=== PATIENT | female | born 1935 | race Caucasian/White ===

== ENCOUNTER 2019-01-19 06:01 | Day surgery (SDC) | payer OTHER ==
[2019-01-18 12:50] LABS: BASOPHILS # (AUTO) 0.1 X10'3 (0-0.2); BASOPHILS % (AUTO) 1.1 % (0-1); EOSINOPHILS # (AUTO) 0.1 X10'3 (0-0.9); EOSINOPHILS % (AUTO) 1.8 % (0-6); HEMOGLOBIN 16.2 g/dl (12.0-16.0); LYMPHOCYTES # (AUTO) 0.7 X10'3 (1.1-4.8); LYMPHOCYTES % (AUTO) 13.1 % (21-51); MEAN CORPUSCULAR HEMOGLOBIN 28.8 PG (27.0-31.0); MEAN CORPUSCULAR HGB CONC 33.2 g/dL (33.0-36.5); MEAN CORPUSCULAR VOLUME 86.8 FL (78-98); MEAN PLATELET VOLUME 8.9 FL (7.4-10.4); MONOCYTES # (AUTO) 0.6 X10'3 (0-0.9); MONOCYTES % (AUTO) 10.2 % (2-12); NEUTROPHILS # (AUTO) 4.2 X10'3 (1.8-7.7); NEUTROPHILS % (AUTO) 73.8 % (42-75); PLATELET COUNT 192 X10'3 (140-440); RED BLOOD COUNT 5.64 X10'6 (4.20-5.60); WHITE BLOOD COUNT 5.7 X10'3 (4.5-11.0)
[2019-01-18 12:58] LABS: ALBUMIN 3.6 G/DL (3.4-5.0); ANION GAP 8 (8-16); BLOOD UREA NITROGEN 25 MG/DL (7-18); BUN/CREATININE RATIO 31.3 (6.6-38.0); CALCIUM 9.7 MG/DL (8.5-10.1); CHLORIDE 106 MMOL/L (99-107); GLUCOSE 82 MG/DL (70-104); SODIUM 142 MMOL/L (135-145); TOTAL CARBON DIOXIDE 28.4 MMOL/L (24-32); eGFR 69 ML/MIN
[2019-01-18 13:02] LABS: PARTIAL THROMBOPLASTIN TIME 28 SECONDS (22-32); PROTHROMBIN TIME 10.6 SECONDS (9.0-12.0)
[~2019-01-19] VITALS: Ht 147.3 cm; Wt 68.6 kg
[2019-01-19] VITALS (14 sets, daily range): BP systolic 116–139; BP diastolic 56–83
[~2019-01-19 06:01] MED LIST: AMLO2.5T2 PO; ASPI81TA46 PO; ATOR10TA70 PO; ESTR0.5T PO; MAGN250T11 PO; MULT-342 PO; OSC500T PO; VALS1TAB75 PO
[2019-01-19] MEDS ORDERED: normal saline 1,000 ML IV SCH (06:15)
[2019-01-19] MEDS ORDERED: LIDOcaine/PRILOcaine 5gm cream TP ONE (06:15)
[2019-01-19] MEDS ORDERED: LORazepam 0.5 MG tablet PO PRN (06:15)
[2019-01-19] MEDS ORDERED: diphenhydrAMINE 25mg capsule PO PRN (06:15)
[2019-01-19] MEDS ORDERED: CHOL10002 PO (06:22)
[2019-01-19] MEDS ORDERED: fentaNYL/PF 50MCG/1 ML 2ML syringe ONE (07:46)
[2019-01-19] MEDS ORDERED: midazolam 2 mg/2 ml injection ONE (07:46)
[2019-01-19] MEDS ORDERED: LIDOcaine 1% (10mg/ml)w/preservative injection 20ml MDV ONE (07:46)
[2019-01-19] MEDS ORDERED: nitroGLYCERIN-Tridil 50MG/D5W 250 ML IV ONE (07:46)
[2019-01-19] MEDS ORDERED: verapamil 2.5 mg/ml inj IV ONE (07:46)
[2019-01-19] MEDS ORDERED: iohexol 350MG/ML 100ml bottle IV ONE ×2 (07:47→08:46)
[2019-01-19] MEDS ORDERED: iohexol 350 MG/ML 50ML vial IV ONE (07:47)
[2019-01-19] MEDS ORDERED: heparin 1,000unit/ml 10ml vial 10 ML ONE ×2 (07:47→09:16)
[2019-01-19] MEDS ORDERED: HYDROmorphone 1 mg/ml syringe ONE (08:45)
[2019-01-19] MEDS ORDERED: heparin 25,000 UNIT/250ml bag 250 ML IV ONE (09:16)
[2019-01-19 15:51] LABS: ISTAT HGB ART 16.3 g/dl (12.0-16.0); ISTAT Hct ART 48 %PCV (35-48); ISTAT O2 SATURATION ARTERIAL 93 % (95-98); ISTAT SOURCE ART
[2019-01-19 15:51] LABS: ISTAT Hct MIX 48 %PCV (35-48); ISTAT O2 SATURATION MIX VENOUS 66 % (60-80); ISTAT SOURCE MIX
== END 2019-01-19 15:55 | disposition home or self-care (01) ==
LOC: SSTAY O 06:01
PROVIDERS: ATTEND Internal Medicine Cardiovascular Disease
DX: I25.10 Atherosclerotic heart disease of native coronary artery without angina pectoris (principal); I35.0 Nonrheumatic aortic (valve) stenosis; I10 Essential (primary) hypertension; E78.5 Hyperlipidemia, unspecified
CPT/HCPCS: 36415; 80048; 82803; 85014; 85025; 85347; 85610; 85730; 93005; 93460; 93567; 99152; 99153; J1170; J1644; J2001; J2250; J3010; J7030; Q0163; Q9967; A4620; C1769; J3490

== ENCOUNTER 2019-02-16 09:56 | Day surgery (SDC) | payer OTHER ==
[2019-02-15 11:59] LABS: BASOPHILS % (AUTO) 0.9 % (0-1); EOSINOPHILS # (AUTO) 0.2 X10'3 (0-0.9); EOSINOPHILS % (AUTO) 2.9 % (0-6); HEMATOCRIT 48.6 % (35.0-45.0); HEMOGLOBIN 16.2 g/dl (12.0-16.0); LYMPHOCYTES # (AUTO) 0.8 X10'3 (1.1-4.8); LYMPHOCYTES % (AUTO) 14.6 % (21-51); MEAN CORPUSCULAR HGB CONC 33.3 g/dL (33.0-36.5); MEAN PLATELET VOLUME 8.9 FL (7.4-10.4); MONOCYTES # (AUTO) 0.6 X10'3 (0-0.9); MONOCYTES % (AUTO) 9.8 % (2-12); NEUTROPHILS # (AUTO) 4.1 X10'3 (1.8-7.7); NEUTROPHILS % (AUTO) 71.8 % (42-75); PLATELET COUNT 169 X10'3 (140-440); RED BLOOD COUNT 5.58 X10'6 (4.20-5.60); RED CELL DISTRIBUTION WIDTH 15.2 % (11.5-14.5); WHITE BLOOD COUNT 5.7 X10'3 (4.5-11.0)
[2019-02-15 12:07] LABS: ALBUMIN 3.5 G/DL (3.4-5.0); ANION GAP 9 (8-16); BLOOD UREA NITROGEN 27 MG/DL (7-18); BUN/CREATININE RATIO 32.1 (6.6-38.0); CALCIUM 9.2 MG/DL (8.5-10.1); CHLORIDE 107 MMOL/L (99-107); CREATININE 0.84 MG/DL (0.40-0.90); GLUCOSE 97 MG/DL (70-104); PARTIAL THROMBOPLASTIN TIME 27 SECONDS (22-32); POTASSIUM 3.8 MMOL/L (3.5-5.1); SODIUM 143 MMOL/L (135-145); TOTAL CARBON DIOXIDE 26.7 MMOL/L (24-32); eGFR 65 ML/MIN
[2019-02-16] VITALS (12 sets, daily range): BP systolic 127–160; BP diastolic 35–92
[~2019-02-16] VITALS: Ht 147.3 cm; Wt 66.9 kg
[~2019-02-16 09:56] MED LIST changes: -ASPI81TA46 PO; +CHOL10002 PO
[2019-02-16] MEDS ORDERED: LORazepam 0.5 MG tablet PO PRN (10:30)
[2019-02-16] MEDS ORDERED: normal saline 1,000 ML IV SCH (10:30)
[2019-02-16] MEDS ORDERED: diphenhydrAMINE 25mg capsule PO PRN (10:30)
[2019-02-16] MEDS ORDERED: ATOR20TA PO (10:37)
[2019-02-16] MEDS ORDERED: LIDOcaine/PRILOcaine 5gm cream TP STA (11:31)
[2019-02-16] MEDS ORDERED: nitroGLYCERIN-Tridil 50MG/D5W 250 ML IV ONE (11:54)
[2019-02-16] MEDS ORDERED: iohexol 350 MG/ML 50ML vial IV ONE (11:54)
[2019-02-16] MEDS ORDERED: heparin 1,000unit/ml 10ml vial 10 ML ONE (11:54)
[2019-02-16] MEDS ORDERED: LIDOcaine 1% (10mg/ml)w/preservative injection 20ml MDV ONE (11:54)
[2019-02-16] MEDS ORDERED: iohexol 350MG/ML 100ml bottle IV ONE (11:55)
[2019-02-16] MEDS ORDERED: fentaNYL/PF 50MCG/1 ML 2ML syringe ONE (12:23)
[2019-02-16] MEDS ORDERED: midazolam 2 mg/2 ml injection ONE (12:23)
[2019-02-16] MEDS ORDERED: iohexol 350 MG/1 ML 200ml bottle ONE ×2 (12:44→13:54)
[2019-02-16] MEDS ORDERED: heparin 25,000 UNIT/250ml bag 250 ML IV ONE (12:55)
[2019-02-16] MEDS ORDERED: clopidogrel 300mg tablet ONE (14:22)
[2019-02-16] MEDS ORDERED: proCHLORperazine 10 MG/2 ml inj IV PRN (15:20)
[2019-02-16] MEDS ORDERED: acetaminophen 325mg tablet PO PRN (15:20)
[2019-02-16] MEDS ORDERED: magnesium hydroxide 30ml (MOM) UD suspension PO PRN (15:20)
[2019-02-16] MEDS ORDERED: HYDROcodone/acetaminophen 10/325mg tab PO PRN ×2 (15:20→15:30)
[2019-02-16] MEDS ORDERED: OXAZEpam 15mg capsule PO PRN (15:20)
[2019-02-16] MEDS ORDERED: cyclobenzaprine 10mg tablet PO PRN (15:20)
[2019-02-16] MEDS ORDERED: aspirin 81mg tab.chew PO ONE (15:25)
[2019-02-16] MEDS ORDERED: docusate sod 100mg capsule PO SCH (20:00)
[2019-02-17] MEDS ORDERED: clopidogrel 75mg tablet PO SCH (08:00)
[2019-02-17] MEDS ORDERED: aspirin 325mg tablet PO SCH (08:00)
== END 2019-02-16 20:15 | disposition home or self-care (01) ==
LOC: SSTAY O 09:56
PROVIDERS: ATTEND Internal Medicine Cardiovascular Disease
DX: I25.119 Atherosclerotic heart disease of native coronary artery with unspecified angina pectoris (principal); I10 Essential (primary) hypertension; E78.5 Hyperlipidemia, unspecified; I35.0 Nonrheumatic aortic (valve) stenosis; Z95.5 Presence of coronary angioplasty implant and graft
CPT/HCPCS: 36415; 80048; 85025; 85347; 85610; 85730; 92920; 93005; 93454; 99152; 99153; A6257; C1874; C9600; J1644; J2001; J2250; J3010; J7030; Q9967; 92921; A4620; C1725; C1760; C1769; C1894; J3490

== ENCOUNTER 2019-12-12 13:30 | Outpatient (CLI) | payer MEDICARE, BC ==
[~2019-12-12 13:30] MED LIST changes: +AMIO200T61 PO; -AMLO2.5T2 PO; +APIX2.5T PO; -ATOR10TA70 PO; +ATOR20TA PO; +CLOP75TA35 PO; +COR3.125T PO; -ESTR0.5T PO; +LISI2.5T2 PO; +POTA10TA19 PO; +TORS20TA3 PO; -VALS1TAB75 PO
== END 2019-12-12 23:59 | disposition home or self-care (01) ==
LOC: CARD DIAG 13:30
PROVIDERS: ATTEND Internal Medicine Cardiovascular Disease
DX: I08.8 Other rheumatic multiple valve diseases (principal); I50.22 Chronic systolic (congestive) heart failure
CPT/HCPCS: 93308

== ENCOUNTER 2022-03-14 12:42 | Outpatient (CLI) | payer MEDICARE ==
[~2022-03-14 12:42] MED LIST changes: +CLOP75TA34 PO; -CLOP75TA35 PO; +LISI2.5T14 PO; -LISI2.5T2 PO; +POTA-192 PO; -POTA10TA19 PO
== END 2022-03-14 23:59 | disposition home or self-care (01) ==
LOC: CARD DIAG 12:42
PROVIDERS: ATTEND Internal Medicine Cardiovascular Disease
DX: I34.0 Nonrheumatic mitral (valve) insufficiency (principal); I51.7 Cardiomegaly
CPT/HCPCS: 93306

== ENCOUNTER 2022-07-25 10:01 | Outpatient (CLI) | payer MEDICARE ==
[~2022-07-25 10:01] MED LIST changes: -AMIO200T61 PO; +AMIO200T67 PO; -LISI2.5T14 PO; +LISI5TAB22 PO; -TORS20TA3 PO
== END 2022-07-25 23:59 | disposition home or self-care (01) ==
LOC: RT 10:01
PROVIDERS: ATTEND Internal Medicine Cardiovascular Disease
DX: R06.02 Shortness of breath (principal); Z79.899 Other long term (current) drug therapy
CPT/HCPCS: 71046; 85018; 94010; 94727; 94729

== ENCOUNTER 2022-12-24 10:45 | Outpatient (CLI) | payer MEDICARE | END 2022-12-24 23:59 | disposition home or self-care (01) | LOC: CARD DIAG 10:45 | PROVIDERS: ATTEND Internal Medicine Cardiovascular Disease | DX: I34.0 Nonrheumatic mitral (valve) insufficiency (principal); I34.81 Nonrheumatic mitral (valve) annulus calcification; I51.89 Other ill-defined heart diseases | CPT/HCPCS: 93306 ==

== ENCOUNTER 2023-09-30 09:09 | Outpatient (CLI) | payer MEDICARE | END 2023-09-30 23:59 | disposition home or self-care (01) | LOC: RAD 09:09 | PROVIDERS: ATTEND Physician Assistant | DX: R10.9 Unspecified abdominal pain (principal); R19.5 Other fecal abnormalities | CPT/HCPCS: 76700 ==